=== PATIENT | female | born 1965 | race Caucasian/White ===

== ENCOUNTER 2022-11-23 21:35 | Emergency (ER) | payer MEDICAID ==
[~2022-11-23] VITALS: Ht 162.6 cm; Wt 59.0 kg
[2022-11-23 21:39] VITALS: O2SAT 99
[2022-11-23] MEDS ORDERED: HYDROCODONE/ACETAMINOPHEN 10/325MG TABLET PO ONE (22:30)
[2022-11-24 04:03] VITALS: BP 96/63; PULSE 60; RESP 16; TEMP 98.1
== END 2022-11-24 09:12 | disposition home or self-care (01) ==
LOC: ER 21:35
DX: M25.551 Pain in right hip (principal); K57.90 Diverticulosis of intestine, part unspecified, without perforation or abscess without bleeding; F41.9 Anxiety disorder, unspecified; W18.39XA Other fall on same level, initial encounter; Y93.89 Activity, other specified; Y92.89 Other specified places as the place of occurrence of the external cause; Y99.8 Other external cause status
CPT/HCPCS: 72170; 99284; 72192; Z7610